=== PATIENT | female | born 1990 | race African-American/Black ===

== ENCOUNTER 2016-06-05 09:56 | Emergency (ER) | payer BC, OTHER ==
[2016-06-05 10:07] VITALS: BP 114/78; PULSE 81; RESP 20; TEMP 98.4
[2016-06-05] MEDS ORDERED: KETOROLAC 60 MG/2 ML VIAL IM STA (10:48)
--- NOTE | 2016-06-05 10:49 | ED ---
General Adult HPI - General Chief complaint: Abdominal Pain Stated complaint: abd cramps Time Seen by Provider: 06/05/16 10:24 Source: patient, RN notes reviewed, old records reviewed Mode of arrival: ambulatory Limitations: no limitations - History of Present Illness Initial comments: This is a 26-year-old female here for evaluation of pelvic cramping, abdominal cramping and appears to yesterday, worse with.. Patient's that she has history of similar issues. Usually takes Motrin as she is currently out of Motrin. She denies any chance of denies nausea vomiting. No diarrhea. No fevers. Patient is requesting Motrin prescription for her cramping. - Related Data Home Medications Medication Instructions Recorded Confirmed Ibuprofen [Advil] 400 mg PO Q8HR PRN 06/05/16 06/05/16 Previous Rx's Medication Instructions Recorded Naproxen [Naprosyn] 500 mg PO Q12HR PRN #60 tab 06/05/16 Allergies Allergy/AdvReac Type Severity Reaction Status Date / Time No Known Allergies Allergy Verified 06/05/16 10:33 Review of Systems ROS Statement: Those systems with pertinent positive or pertinent negative responses have been documented in the HPI. ROS Other: All systems not noted in ROS Statement are negative. Past Medical History Past Medical History: No Reported History History of Any Multi-Drug Resistant Organisms: None Reported Past Surgical History: No Surgical Hx Reported Past Psychological History: No Psychological Hx Reported Smoking Status: Never smoker Past Alcohol Use History: Occasional Past Drug Use History: None Reported General Exam Limitations: no limitations General appearance: alert, in no apparent distress Head exam: Present: atraumatic, normocephalic, normal inspection Eye exam: Present: normal appearance, PERRL, EOMI. Absent: scleral icterus, conjunctival injection, periorbital swelling ENT exam: Present: normal exam, mucous membranes moist Neck exam: Present: normal inspection. Absent: tenderness, meningismus, lymphadenopathy Respiratory exam: Present: normal lung sounds bilaterally. Absent: respiratory distress, wheezes, rales, rhonchi, stridor Cardiovascular Exam: Present: regular rate, normal rhythm, normal heart sounds. Absent: systolic murmur, diastolic murmur, rubs, gallop, clicks GI/Abdominal exam: Present: soft, normal bowel sounds. Absent: distended, tenderness, guarding, rebound, rigid Extremities exam: Present: normal inspection, full ROM, normal capillary refill. Absent: tenderness, pedal edema, joint swelling, calf tenderness Back exam: Present: normal inspection Neurological exam: Present: alert, oriented X3, CN II-XII intact Psychiatric exam: Present: normal affect, normal mood Skin exam: Present: warm, dry, intact, normal color. Absent: rash Course Vital Signs 06/05/16 10:05 Temperature 98.4 F Pulse Rate 81 Respiratory 20 Rate Blood Pressure 114/78 O2 Sat by Pulse 100 Oximetry Medical Decision Making - Medical Decision Making 26 female in the ER for evaluation of menstrual cramping, patient's urine is negative, patient will be discharged home with Naprosyn, patient is in no acute distress not requiring medication at this time. Disposition Clinical Impression: Menstrual cramp Disposition: HOME SELF-CARE Condition: Good Instructions: Dysmenorrhea (ED) Prescriptions: Naproxen [Naprosyn] 500 mg PO Q12HR PRN #60 tab PRN Reason: Pain Referrals: Sony Snyder MD [Primary Care Provider] - 1-2 days
== END 2016-06-05 10:57 | disposition home or self-care (01) ==
LOC: EC 09:56
DX: N94.6 Dysmenorrhea, unspecified (principal)
CPT/HCPCS: 99284

== ENCOUNTER 2017-12-20 23:07 | Emergency (ER) | payer BC, OTHER ==
[2017-12-20 23:13] VITALS: TEMP 98.4
[2017-12-20] MEDS ORDERED: SODIUM CHLORIDE 0.9% 1,000 ML IV STA (23:39)
[2017-12-20] MEDS ORDERED: MORPHINE SULFATE 4 MG/ML SYRINGE IV STA (23:39)
[2017-12-20] MEDS ORDERED: ONDANSETRON 4 MG/2 ML VIAL IVP STA (23:39)
--- NOTE | 2017-12-20 23:42 | ED ---
Abdominal Pain HPI - General Chief Complaint: Abdominal Pain Stated Complaint: Abdominal Pain Time Seen by Provider: 12/20/17 23:21 Source: patient Mode of arrival: wheelchair Limitations: no limitations - History of Present Illness Initial Comments: 27-year-old female patient presents to the emergency department today for evaluation of right lower quadrant abdominal pain. Patient states this started approximately 2-1/2 hours ago. Patient states the pain worsens significantly with any type of movement. States that the pain is sharp and stabbing in nature. She denies any radiation of the pain to her back. States she has been nauseated and has not vomited. Denies any hematuria, dysuria, urinary frequency , urinary urgency. Denies any abnormal vaginal bleeding or discharge. Denies any chance of . Denies any constipation or diarrhea. Last bowel movement was approximately 4 hours ago and was normal for her. Denies any hematochezia or melena. Patient denies any recent rash, fever, chills, back pain, numbness, tingling, dizziness, weakness, headache, visual changes, or any other complaints. Last period started 11/27/2017. - Related Data Previous Rx's Medication Instructions Recorded Ibuprofen [Motrin] 600 mg PO Q8HR PRN #30 tab 12/21/17 Allergies Allergy/AdvReac Type Severity Reaction Status Date / Time No Known Allergies Allergy Verified 12/20/17 23:12 Review of Systems ROS Statement: Those systems with pertinent positive or pertinent negative responses have been documented in the HPI. ROS Other: All systems not noted in ROS Statement are negative. Past Medical History Past Medical History: No Reported History History of Any Multi-Drug Resistant Organisms: None Reported Past Surgical History: No Surgical Hx Reported Past Psychological History: No Psychological Hx Reported Smoking Status: Never smoker Past Alcohol Use History: Occasional Past Drug Use History: None Reported General Exam Limitations: no limitations General appearance: alert, in no apparent distress, other (This is a well- developed, well-nourished adult female patient in mild distress related to pain. Vital signs upon presentation are temperature 98.4F, pulse 108, respirations 18, blood pressure 124/82, pulse ox 99% on room air.) Eye exam: Present: normal appearance, PERRL, EOMI. Absent: scleral icterus, conjunctival injection, periorbital swelling ENT exam: Present: normal exam, normal oropharynx, mucous membranes moist Respiratory exam: Present: normal lung sounds bilaterally. Absent: respiratory distress, wheezes, rales, rhonchi, stridor Cardiovascular Exam: Present: regular rate, normal rhythm, normal heart sounds. Absent: systolic murmur, diastolic murmur, rubs, gallop, clicks GI/Abdominal exam: Present: soft, tenderness (Right upper quadrant and right lower quadrant abdominal tenderness), guarding, normal bowel sounds. Absent: distended, rebound, rigid Neurological exam: Present: alert, oriented X3, CN II-XII intact Psychiatric exam: Present: normal affect, normal mood Skin exam: Present: warm, dry, intact, normal color. Absent: rash Course Vital Signs 12/20/17 12/21/17 12/21/17 23:11 01:32 02:09 Temperature 98.4 F Pulse Rate 108 H 70 84 Respiratory 18 16 16 Rate Blood Pressure 124/82 89/52 98/55 O2 Sat by Pulse 99 97 99 Oximetry Medical Decision Making - Medical Decision Making 27-year-old female patient presents the emergency department today for evaluation of right lower quadrant abdominal pain. Physical examination did reveal right lower quadrant and right upper quadrant abdominal tenderness. Patient did have some guarding. Labs reviewed and are unremarkable. CT abdomen and pelvis was obtained and showed large right ovarian cyst, to further evaluate for possible torsion I did order transvaginal ultrasound which did show a 3 x 3 x 3 cm right ovarian cyst that appeared to be hemorrhagic in nature. There is no fluid in the cul-de-sac. Patient was informed of all results. She will be given ibuprofen for pain management. She is instructed to follow-up with her [facility] [employer] [employer] for recheck as soon as possible. Return parameters discussed in detail. She verbalizes understanding and agrees with this plan. - Lab Data Result diagrams: 12/20/17 23:23 12/20/17 23:23 Lab Results 12/20/17 12/20/17 12/20/17 Range/Units 23:23 23:23 23:55 WBC 10.1 (3.8-10.6) k/uL RBC 4.74 (3.80-5.40) m/uL Hgb 12.3 (11.4-16.0) gm/dL Hct 39.4 (34.0-46.0) % MCV 83.2 (80.0-100.0) fL MCH 26.0 (25.0-35.0) pg MCHC 31.2 (31.0-37.0) g/dL RDW 13.4 (11.5-15.5) % Plt Count 238 (150-450) k/uL Neutrophils % 62 % Lymphocytes % 27 % Monocytes % 7 % Eosinophils % 2 % Basophils % 0 % Neutrophils # 6.3 (1.3-7.7) k/uL Lymphocytes # 2.7 (1.0-4.8) k/uL Monocytes # 0.7 (0-1.0) k/uL Eosinophils # 0.2 (0-0.7) k/uL Basophils # 0.0 (0-0.2) k/uL Sodium 137 (137-145) mmol/L Potassium 4.1 (3.5-5.1) mmol/L Chloride 104 (98-107) mmol/L Carbon Dioxide 23 (22-30) mmol/L Anion Gap 10 mmol/L BUN 18 H (7-17) mg/dL Creatinine 0.70 (0.52-1.04) mg/dL Est GFR (CKD-EPI)AfAm >90 (>60 ml/min/1.73 sqM) Est GFR (CKD-EPI)NonAf >90 (>60 ml/min/1.73 sqM) Glucose 114 H (74-99) mg/dL Calcium 9.9 (8.4-10.2) mg/dL Total Bilirubin 0.2 (0.2-1.3) mg/dL AST 27 (14-36) U/L ALT 32 (9-52) U/L Alkaline Phosphatase 46 (38-126) U/L Total Protein 7.5 (6.3-8.2) g/dL Albumin 4.2 (3.5-5.0) g/dL Amylase 74 (30-110) U/L Lipase 82 (23-300) U/L Urine Color Urine Appearance (Clear) Urine pH (5.0-8.0) Ur Specific Lopez (1.001-1.035) Urine Protein (Negative) Urine Glucose (UA) (Negative) Urine Ketones (Negative) Urine Blood (Negative) Urine Nitrite (Negative) Urine Bilirubin (Negative) Urine Urobilinogen (<2.0) mg/dL Ur Leukocyte Esterase (Negative) Urine HCG, Qual Not Detected (Not Detectd) 12/20/17 Range/Units 23:55 WBC (3.8-10.6) k/uL RBC (3.80-5.40) m/uL Hgb (11.4-16.0) gm/dL Hct (34.0-46.0) % MCV (80.0-100.0) fL MCH (25.0-35.0) pg MCHC (31.0-37.0) g/dL RDW (11.5-15.5) % Plt Count (150-450) k/uL Neutrophils % % Lymphocytes % % Monocytes % % Eosinophils % % Basophils % % Neutrophils # (1.3-7.7) k/uL Lymphocytes # (1.0-4.8) k/uL Monocytes # (0-1.0) k/uL Eosinophils # (0-0.7) k/uL Basophils # (0-0.2) k/uL Sodium (137-145) mmol/L Potassium (3.5-5.1) mmol/L Chloride (98-107) mmol/L Carbon Dioxide (22-30) mmol/L Anion Gap mmol/L BUN (7-17) mg/dL Creatinine (0.52-1.04) mg/dL Est GFR (CKD-EPI)AfAm (>60 ml/min/1.73 sqM) Est GFR (CKD-EPI)NonAf (>60 ml/min/1.73 sqM) Glucose (74-99) mg/dL Calcium (8.4-10.2) mg/dL Total Bilirubin (0.2-1.3) mg/dL AST (14-36) U/L ALT (9-52) U/L Alkaline Phosphatase (38-126) U/L Total Protein (6.3-8.2) g/dL Albumin (3.5-5.0) g/dL Amylase (30-110) U/L Lipase (23-300) U/L Urine Color Yellow Urine Appearance Clear (Clear) Urine pH 5.5 (5.0-8.0) Ur Specific Lopez 1.024 (1.001-1.035) Urine Protein Trace H (Negative) Urine Glucose (UA) Negative (Negative) Urine Ketones Negative (Negative) Urine Blood Negative (Negative) Urine Nitrite Negative (Negative) Urine Bilirubin Negative (Negative) Urine Urobilinogen <2.0 (<2.0) mg/dL Ur Leukocyte Esterase Negative (Negative) Urine HCG, Qual (Not Detectd) - Radiology Data Radiology results: report reviewed, image reviewed CT abdomen and pelvis with contrast was obtained. Report was reviewed in its entirety. Impression by Dr. Elder shows large right ovarian cyst. No sign of appendicitis. Transvaginal ultrasound with Doppler was obtained. Report was reviewed in its entirety. Impression by Dr. Elder shows Uterus and endometrium within normal limits. Complex right ovarian cyst noted. This could be hemorrhagic cyst. No solid adnexal mass. Normal arterial waveforms to an ovarian arteries. No evidence of torsion. Disposition Clinical Impression: Hemorrhagic cyst of right ovary Disposition: HOME SELF-CARE Condition: Good Instructions: Ovarian Cyst (ED) Additional Instructions: Increase fluids. Take medications as directed. Follow-up with your [facility] [employer] for recheck. Return here immediately for any new, worsening, or concerning symptoms. Prescriptions: Ibuprofen [Motrin] 600 mg PO Q8HR PRN #30 tab PRN Reason: Pain Is patient prescribed a controlled substance at d/c from ED?: No Referrals: Sony Snyder MD [Primary Care Provider] - 1-2 days Time of Disposition: 01:53
[2017-12-21 00:03] LABS: Basophils % (A) 0 %; Eosinophils # (A) 0.2 k/uL (0-0.7); Eosinophils % (A) 2 %; HCT 39.4 % (34.0-46.0); HGB 12.3 gm/dL (11.4-16.0); Lymphocytes # (A) 2.7 k/uL (1.0-4.8); Lymphocytes % (A) 27 %; MCHC 31.2 g/dL (31.0-37.0); MCV 83.2 fL (80.0-100.0); Mean Platelet Volume 8.4; Monocytes # (A) 0.7 k/uL (0-1.0); Monocytes % (A) 7 %; Neutrophils # (A) 6.3 k/uL (1.3-7.7); Neutrophils % (A) 62 %; Platelet Count 238 k/uL (150-450); RBC 4.74 m/uL (3.80-5.40); RDW 13.4 % (11.5-15.5); WBC 10.1 k/uL (3.8-10.6)
[2017-12-21 00:06] LABS: ALT 32 U/L (9-52); AST 27 U/L (14-36); Albumin 4.2 g/dL (3.5-5.0); Alkaline Phosphatase 46 U/L (38-126); Amylase 74 U/L (30-110); Anion Gap 10 mmol/L; Blood Urea Nitrogen 18 mg/dL (7-17); Calcium 9.9 mg/dL (8.4-10.2); Carbon Dioxide 23 mmol/L (22-30); Chloride 104 mmol/L (98-107); Glucose 114 mg/dL (74-99); Lipase 82 U/L (23-300); Potassium 4.1 mmol/L (3.5-5.1); Sodium 137 mmol/L (137-145); Total Bilirubin 0.2 mg/dL (0.2-1.3); Total Protein 7.5 g/dL (6.3-8.2)
[2017-12-21 00:18] LABS: Appearance,Urine Clear (Clear); Bilirubin,Urine Negative (Negative); Blood,Urine Negative (Negative); Color,Urine Yellow; Glucose,Urine (UA) Negative (Negative); Ketones,Urine Negative (Negative); Leukocyte Esterase,Urine Negative (Negative); Nitrite,Urine Negative (Negative); PH, Urine 5.5 (5.0-8.0); Protein,Urine Trace (Negative); Specific Gravity,Urine 1.024 (1.001-1.035); Urobilinogen,Urine <2.0 mg/dL (<2.0)
--- NOTE | 2017-12-21 00:47 | CT ---
EXAMINATION TYPE: CT abdomen pelvis w con DATE OF EXAM: 12/21/2017 COMPARISON: None HISTORY: lower abd pain CT DLP: 410 mGycm Automated exposure control for dose reduction was used. TECHNIQUE: Helical acquisition of images was performed from the lung bases through the pelvis. CONTRAST: Performed without Oral Contrast and with IV Contrast, patient injected with 100 mL of Isovue 300. FINDINGS: Lung bases are clear. There is no pleural effusion. Heart size is normal. Liver spleen pancreas gallbladder appear normal. Bile ducts are not dilated. There is no adrenal mass. Kidneys show satisfactory contrast opacification. There is no hydronephrosi s. There is no retroperitoneal adenopathy. There is no ascites. Bladder distends smoothly. There is 3 cm cyst on the right ovary. Uterus is anteverted. There is no evidence of free air. Lumbar spine is intact. Appendix is not seen. There is no evidence of appendicitis. IMPRESSION: LARGE RIGHT OVARIAN CYST. NO SIGN OF APPENDICITIS.
[2017-12-21 01:43] VITALS: RESP 16
--- NOTE | 2017-12-21 01:46 | US ---
EXAMINATION TYPE: US transvaginal DATE OF EXAM: 12/21/2017 COMPARISON: CT same day CLINICAL HISTORY: Pain. Right pelvic pain x 1 day, 0 TECHNIQUE: Transvaginal ER exam. Date of LMP: 11/27/2017 EXAM MEASUREMENTS: Uterus: 8.0 x 4.0 x 5.6 cm Endometrial Stripe: 1.5 cm Right Ovary: 4.7 x 3.9 x 3.9 cm Left Ovary: 3.8 x 1.7 x 2.2 cm 1. Uterus: anteverted 2. Endometrium: thickened 3. Right Ovary: 3.2 x 2.0 x 3.2cm complex cyst 4. Left Ovary: wnl Spectral, color and waveform doppler imaging shows good arterial flow within the both ovaries and g ood venous flow within the left ovary, unable to obtain venous flow within the right ovary. 5. Bilateral Adnexa: wnl 6. Posterior cul-de-sac: small amount of free fluid IMPRESSION: Uterus and endometrium within normal limits. Complex right ovarian cyst. This could be he morrhagic cyst. No solid adnexal mass. Normal arterial waveforms seen in the ovarian arteries. No jorje dence of torsion.
[2017-12-21] MEDS ORDERED: ACET/COD 300 MG/30 MG STARTER PACK 6 TAB BTL PO STA (01:53)
[2017-12-21 02:10] VITALS: BP 98/55; PULSE 84
== END 2017-12-21 02:13 | disposition home or self-care (01) ==
LOC: EC 23:07
DX: N83.201 Unspecified ovarian cyst, right side (principal)
CPT/HCPCS: 36415; 80053; 82150; 83690; 85025; 81003; 81025; 93975; 76830; 74177; 99284; 96374; 96375; 96361; J2270; J2405; Q9967

== ENCOUNTER → 2018-02-27 | Outpatient (CLI) | payer BC ==
[2018-02-27 11:35] LABS: Basophils % (A) 0 %; Eosinophils # (A) 0.1 k/uL (0-0.7); Eosinophils % (A) 2 %; HCT 39.5 % (34.0-46.0); HGB 12.5 gm/dL (11.4-16.0); Lymphocytes # (A) 1.1 k/uL (1.0-4.8); Lymphocytes % (A) 24 %; MCH 26.7 pg (25.0-35.0); MCHC 31.6 g/dL (31.0-37.0); MCV 84.6 fL (80.0-100.0); Monocytes # (A) 0.3 k/uL (0-1.0); Monocytes % (A) 7 %; Neutrophils # (A) 3.1 k/uL (1.3-7.7); Neutrophils % (A) 66 %; Platelet Count 223 k/uL (150-450); RBC 4.68 m/uL (3.80-5.40); WBC 4.6 k/uL (3.8-10.6)
== END | disposition home or self-care (01) ==
LOC: LABWHC1 10:20
PROVIDERS: ATTEND Nurse Practitioner Family
DX: L70.0 Acne vulgaris (principal)
CPT/HCPCS: 36415; 82465; 84450; 84460; 84478; 84702; 85025

== ENCOUNTER → 2018-05-11 | Outpatient (CLI) | payer BC | END | disposition home or self-care (01) | LOC: LABWHC1 09:02 | PROVIDERS: ATTEND Nurse Practitioner Family | DX: L70.0 Acne vulgaris (principal) | CPT/HCPCS: 36415; 81025; 82465 ==

== ENCOUNTER → 2018-06-15 | Outpatient (CLI) | payer BC | END | disposition home or self-care (01) | LOC: LABWHC1 08:22 | PROVIDERS: ATTEND Nurse Practitioner Family | DX: L70.0 Acne vulgaris (principal) | CPT/HCPCS: 81025 ==